=== PATIENT | female | born 1985 | race Caucasian/White ===

== ENCOUNTER 2017-05-28 18:25 | Emergency (ER) | payer MEDICAID ==
[~2017-05-28] VITALS: Ht 157.5 cm; Wt 74.7 kg
[~2017-05-28 18:25] MED LIST: CYCL-1 PO; DIPH25CA83 PO; IBUP-1574 PO; MECL-111 PO; METH500T PO; NO HOME MEDS
[2017-05-28] MEDS ORDERED: diphenhydrAMINE 25mg capsule PO ONE (19:55)
[2017-05-28 20:06] VITALS: BP 125/80
== END 2017-05-28 20:08 | disposition home or self-care (01) ==
LOC: ER 18:26
DX: L50.9 Urticaria, unspecified (principal); F12.10 Cannabis abuse, uncomplicated; Z79.899 Other long term (current) drug therapy
CPT/HCPCS: 99282; Q0163

== ENCOUNTER 2018-07-13 20:25 | Emergency (ER) | payer MEDICAID ==
[~2018-07-13] VITALS: Ht 157.5 cm; Wt 55.0 kg
[2018-07-13 21:20] LABS: BASOPHILS # (AUTO) 0.1 X10'3 (0-0.2); BASOPHILS % (AUTO) 0.8 % (0-1); EOSINOPHILS # (AUTO) 0.2 X10'3 (0-0.9); EOSINOPHILS % (AUTO) 2.8 % (0-6); HEMOGLOBIN 13.3 g/dl (12.0-16.0); LYMPHOCYTES # (AUTO) 2.5 X10'3 (1.1-4.8); LYMPHOCYTES % (AUTO) 35.7 % (21-51); MEAN CORPUSCULAR HGB CONC 33.2 g/dL (33.0-36.5); MEAN CORPUSCULAR VOLUME 84.4 FL (78-98); MONOCYTES # (AUTO) 0.5 X10'3 (0-0.9); MONOCYTES % (AUTO) 7.1 % (2-12); NEUTROPHILS # (AUTO) 3.8 X10'3 (1.8-7.7); NEUTROPHILS % (AUTO) 53.6 % (42-75); PLATELET COUNT 265 X10'3 (140-440); RED BLOOD COUNT 4.74 X10'6 (4.20-5.60); RED CELL DISTRIBUTION WIDTH 13.7 % (11.5-14.5); WHITE BLOOD COUNT 7.1 X10'3 (4.5-11.0)
[2018-07-13 21:28] LABS: CLARITY,URINE SLIGHTLY CLOUDY (Clear); COLOR,URINE YELLOW (Yellow); GLUCOSE, URINE NEGATIVE (Neg); KETONES,URINE NEGATIVE (Neg); LEUKOCYTE ESTERASE ,URINE NEGATIVE (Neg); NITRITES, URINE NEGATIVE (Neg); OCCULT BLOOD,URINE NEGATIVE (Neg); PH,URINE 5.5 (4.8-8.0); PROTEIN,URINE NEGATIVE (Neg); UROBILINOGEN,URINE 0.2 E.U/dL (0.2-1.0)
[2018-07-13 21:29] LABS: URINE HCG NEGATIVE (NEG)
[2018-07-13] MEDS ORDERED: dexamethasone sod phosphate 10mg/ml inj IV STA (21:42)
[2018-07-13] MEDS ORDERED: morphine 4 MG/ML inj SYRINge IV PRN (21:45)
[2018-07-13] MEDS ORDERED: ketorolac tromethamine 15mg/ml inj. IV ONE (21:45)
[2018-07-13] MEDS ORDERED: diphenhydrAMINE 50 mg/ml inj IV ONE (21:45)
[2018-07-13] MEDS ORDERED: SUMAtriptan succ. 6 MG/0.5ml vial SQ ONE (21:45)
[2018-07-13] MEDS ORDERED: normal saline 1000ML IV soln IVB ONE ×2 (21:45)
[2018-07-13] MEDS ORDERED: proCHLORperazine 10 MG/2 ml inj IV ONE (21:45)
[2018-07-13 21:46] LABS: UA COLLECTION TYPE CLN CATCH MIDSTREAM
[2018-07-13 21:47] LABS: BACTERIA,URINE FEW /HPF (Neg); RBC,URINE NONE SEEN /HPF (0-2); SQUAMOUS EPITHELIAL CELL,UR MODERATE /LPF (FEW); WBC,URINE 0-4 /HPF (0-4)
[2018-07-13 22:23] LABS: ALANINE AMINOTRANSFERASE 19 U/L (12-78); ALBUMIN/GLOBULIN RATIO 1.4 (1.1-1.5); ALKALINE PHOSPHATASE 90 IU/L (46-116); ANION GAP 8 (8-16); ASPARTATE AMINO TRANSFERASE 16 U/L (10-37); BILIRUBIN,TOTAL 0.2 MG/DL (0.1-1.0); BLOOD UREA NITROGEN 18 MG/DL (7-18); BUN/CREATININE RATIO 23.1 (6.6-38.0); CALCIUM 8.9 MG/DL (8.5-10.1); CHLORIDE 105 MMOL/L (99-107); CREATININE 0.78 MG/DL (0.40-0.90); GLUCOSE 99 MG/DL (70-104); LIPASE 83 U/L (73-393); POTASSIUM 3.7 MMOL/L (3.5-5.1); SODIUM 141 MMOL/L (135-145); TOTAL CARBON DIOXIDE 27.6 MMOL/L (24-32); TOTAL PROTEIN 6.9 G/DL (6.4-8.2); eGFR 85 ML/MIN
[2018-07-14] MEDS ORDERED: ONDA4TAB6 PO (00:41)
[2018-07-14 00:58] VITALS: BP 101/57
== END 2018-07-14 01:03 | disposition home or self-care (01) ==
LOC: ER 20:26
DX: R10.11 Right upper quadrant pain (principal); G43.909 Migraine, unspecified, not intractable, without status migrainosus; R19.7 Diarrhea, unspecified; F12.90 Cannabis use, unspecified, uncomplicated; Z98.890 Other specified postprocedural states; Z79.899 Other long term (current) drug therapy
CPT/HCPCS: 36415; 74176; 76700; 80053; 81001; 81025; 83690; 85025; 85610; 96361; 96372; 96374; 96375; 99284; J0780; J1100; J1200; J1885; J2270; J7030; J3030

== ENCOUNTER 2019-04-27 15:02 | Emergency (ER) | payer MEDICAID ==
[~2019-04-27] VITALS: Ht 157.5 cm; Wt 62.0 kg
[~2019-04-27 15:02] MED LIST changes: -MECL-111 PO; +MECL-159 PO; +ONDA4TAB6 PO
[2019-04-27 15:59] LABS: BASOPHILS # (AUTO) 0.1 X10'3 (0-0.2); BASOPHILS % (AUTO) 0.8 % (0-1); EOSINOPHILS # (AUTO) 0.3 X10'3 (0-0.9); EOSINOPHILS % (AUTO) 3.6 % (0-6); HEMATOCRIT 39.9 % (35.0-45.0); HEMOGLOBIN 13.5 g/dl (12.0-16.0); LYMPHOCYTES # (AUTO) 2.1 X10'3 (1.1-4.8); LYMPHOCYTES % (AUTO) 30.1 % (21-51); MEAN CORPUSCULAR HEMOGLOBIN 28.7 PG (27.0-31.0); MEAN CORPUSCULAR HGB CONC 33.8 g/dL (33.0-36.5); MEAN CORPUSCULAR VOLUME 84.9 FL (78-98); MEAN PLATELET VOLUME 8.2 FL (7.4-10.4); MONOCYTES # (AUTO) 0.5 X10'3 (0-0.9); MONOCYTES % (AUTO) 7.5 % (2-12); NEUTROPHILS # (AUTO) 4.1 X10'3 (1.8-7.7); PLATELET COUNT 273 X10'3 (140-440); WHITE BLOOD COUNT 7.1 X10'3 (4.5-11.0)
[2019-04-27 16:14] LABS: ALANINE AMINOTRANSFERASE 21 U/L (12-78); ALBUMIN/GLOBULIN RATIO 1.3 (1.1-1.5); ALKALINE PHOSPHATASE 98 IU/L (46-116); ANION GAP 8 (8-16); ASPARTATE AMINO TRANSFERASE 22 U/L (10-37); BILIRUBIN,TOTAL 0.4 MG/DL (0.1-1.0); BLOOD UREA NITROGEN 15 MG/DL (7-18); BUN/CREATININE RATIO 20.3 (6.6-38.0); CALCIUM 8.6 MG/DL (8.5-10.1); CHLORIDE 104 MMOL/L (99-107); CREATININE 0.74 MG/DL (0.40-0.90); GLUCOSE 89 MG/DL (70-104); LIPASE 94 U/L (73-393); POTASSIUM 3.6 MMOL/L (3.5-5.1); SODIUM 141 MMOL/L (135-145); TOTAL CARBON DIOXIDE 29.3 MMOL/L (24-32); eGFR 90 ML/MIN
[2019-04-27 18:53] VITALS: BP 126/89
[2019-04-27 18:57] LABS: CLARITY,URINE CLEAR (Clear); COLOR,URINE YELLOW (Yellow); GLUCOSE, URINE NEGATIVE (Neg); KETONES,URINE NEGATIVE (Neg); LEUKOCYTE ESTERASE ,URINE NEGATIVE (Neg); NITRITES, URINE NEGATIVE (Neg); OCCULT BLOOD,URINE NEGATIVE (Neg); PROTEIN,URINE NEGATIVE (Neg); UROBILINOGEN,URINE 0.2 E.U/dL (0.2-1.0)
[2019-04-27 18:58] LABS: UA COLLECTION TYPE CLN CATCH MIDSTREAM
[2019-04-27 19:19] LABS: URINE HCG NEGATIVE (NEG)
== END 2019-04-27 19:49 | disposition home or self-care (01) ==
LOC: ER 15:03
DX: R10.84 Generalized abdominal pain (principal); R10.33 Periumbilical pain; R10.32 Left lower quadrant pain; R05 Cough; R19.7 Diarrhea, unspecified; R11.0 Nausea; F41.9 Anxiety disorder, unspecified; F12.90 Cannabis use, unspecified, uncomplicated; Z98.890 Other specified postprocedural states; Z79.899 Other long term (current) drug therapy
CPT/HCPCS: 36415; 80053; 81003; 81025; 83690; 85025; 99283

== ENCOUNTER 2020-07-02 16:08 | Emergency (ER) | payer MEDICAID ==
[~2020-07-02] VITALS: Ht 157.5 cm; Wt 86.4 kg
[2020-07-02] MEDS ORDERED: ketorolac trometh. 30mg/ml inj. IM ONE (17:20)
[2020-07-02] MEDS ORDERED: ketorolac tromethamine 15mg/ml inj. IM ONE (17:25)
--- NOTE | 2020-07-02 17:55 | NUR ---
relieving RN for break, pt is back from [place], pt is resting quietly on gurney, ccollar in place, pt said pain med has helped relieved to 10/19 "my head still hurts"
[2020-07-02] MEDS ORDERED: CYCL-394 PO (18:14)
[2020-07-02] MEDS ORDERED: METH4TAB81 PO (18:14)
[2020-07-02 18:27] VITALS: BP 136/92
== END 2020-07-02 18:35 | disposition home or self-care (01) ==
LOC: ER 16:09
DX: S09.90XA Unspecified injury of head, initial encounter (principal); M54.2 Cervicalgia; R11.0 Nausea; R42 Dizziness and giddiness; M79.10 Myalgia, unspecified site; R05 Cough; R07.81 Pleurodynia; G43.909 Migraine, unspecified, not intractable, without status migrainosus; F41.9 Anxiety disorder, unspecified; F12.90 Cannabis use, unspecified, uncomplicated; Z98.890 Other specified postprocedural states; Z79.899 Other long term (current) drug therapy; W18.30XA Fall on same level, unspecified, initial encounter; Y93.89 Activity, other specified; Y92.89 Other specified places as the place of occurrence of the external cause; Y99.8 Other external cause status
CPT/HCPCS: 70450; 72125; 74176; 96372; 99285; J1885

== ENCOUNTER 2020-12-29 17:38 | Emergency (ER) | payer MEDICAID ==
[~2020-12-29] VITALS: Ht 157.5 cm; Wt 72.7 kg
[~2020-12-29 17:38] MED LIST changes: +METH4TAB81 PO
[2020-12-29 18:05] VITALS: BP 135/98
[2020-12-29] MEDS ORDERED: ondansetron/PF 4mg/2ml inj IM ONE (19:25)
[2020-12-29 20:22] LABS: BASOPHILS % (AUTO) 0.5 % (0-1); EOSINOPHILS # (AUTO) 0.1 X10'3 (0-0.9); EOSINOPHILS % (AUTO) 3.2 % (0-6); HEMATOCRIT 41.5 % (35.0-45.0); HEMOGLOBIN 13.5 g/dl (12.0-16.0); LYMPHOCYTES # (AUTO) 1.3 X10'3 (1.1-4.8); LYMPHOCYTES % (AUTO) 34.5 % (21-51); MEAN CORPUSCULAR HGB CONC 32.6 g/dL (33.0-36.5); MEAN CORPUSCULAR VOLUME 85.9 FL (78-98); MEAN PLATELET VOLUME 8.5 FL (7.4-10.4); MONOCYTES # (AUTO) 0.4 X10'3 (0-0.9); MONOCYTES % (AUTO) 9.6 % (2-12); NEUTROPHILS % (AUTO) 52.2 % (42-75); PLATELET COUNT 249 X10'3 (140-440); RED BLOOD COUNT 4.83 X10'6 (4.20-5.60); RED CELL DISTRIBUTION WIDTH 13.5 % (11.5-14.5); WHITE BLOOD COUNT 3.9 X10'3 (4.5-11.0)
[2020-12-29 20:32] LABS: ALANINE AMINOTRANSFERASE 41 U/L (12-78); ALBUMIN/GLOBULIN RATIO 1.2 (1.1-1.5); ALKALINE PHOSPHATASE 117 IU/L (46-116); ANION GAP 10 (8-16); ASPARTATE AMINO TRANSFERASE 39 U/L (10-37); BILIRUBIN,TOTAL 0.4 MG/DL (0.1-1.0); BLOOD UREA NITROGEN 20 MG/DL (7-18); BUN/CREATININE RATIO 21.3 (6.6-38.0); CALCIUM 8.4 MG/DL (8.5-10.1); CHLORIDE 107 MMOL/L (99-107); CREATININE 0.94 MG/DL (0.40-0.90); GLUCOSE 99 MG/DL (70-104); POTASSIUM 3.5 MMOL/L (3.5-5.1); SODIUM 147 MMOL/L (135-145); TOTAL CARBON DIOXIDE 29.6 MMOL/L (24-32); TOTAL PROTEIN 7.3 G/DL (6.4-8.2); eGFR 67 ML/MIN
[2020-12-29 20:43] LABS: CLARITY,URINE SLIGHTLY CLOUDY (Clear); COLOR,URINE YELLOW (Yellow); UA COLLECTION TYPE NON-SPECIFIED
[2020-12-29 20:44] LABS: GLUCOSE, URINE NEGATIVE (Neg); KETONES,URINE TRACE mg/dl (Neg); LEUKOCYTE ESTERASE ,URINE NEGATIVE (Neg); NITRITES, URINE NEGATIVE (Neg); OCCULT BLOOD,URINE NEGATIVE (Neg); PROTEIN,URINE NEGATIVE (Neg); UROBILINOGEN,URINE 0.2 E.U/dL (0.2-1.0)
[2020-12-29 20:46] LABS: BACTERIA,URINE FEW /HPF (Neg); CAL OXALATE CRYSTALS 2+ /HPF (NEGATIVE); MUCUS STRANDS FEW /LPF (Neg); RBC,URINE 0-2 /HPF (0-2); SQUAMOUS EPITHELIAL CELL,UR MODERATE /LPF (FEW); WBC,URINE 0-4 /HPF (0-4)
[2020-12-29 21:09] LABS: D-DIMER < 0.19 MG/L FEU (0-0.50)
== END 2020-12-29 21:30 | disposition home or self-care (01) ==
LOC: ER 17:39
DX: U07.1 COVID-19 (principal); R05.9 Cough, unspecified; R06.02 Shortness of breath; R11.0 Nausea; R19.7 Diarrhea, unspecified; R53.1 Weakness; R53.83 Other fatigue; F41.9 Anxiety disorder, unspecified; G43.909 Migraine, unspecified, not intractable, without status migrainosus; F12.90 Cannabis use, unspecified, uncomplicated; Z98.890 Other specified postprocedural states; Z79.899 Other long term (current) drug therapy
CPT/HCPCS: 36415; 71045; 80053; 81001; 85025; 85379; 87635; 96372; 99284; C9803; J2405

== ENCOUNTER 2021-07-11 09:36 | Emergency (ER) | payer MEDICAID ==
[~2021-07-11] VITALS: Ht 157.5 cm; Wt 72.7 kg
[2021-07-11 09:49] VITALS: BP 136/102
== END 2021-07-11 12:52 | disposition home or self-care (01) ==
LOC: ER 09:36
DX: S93.412A Sprain of calcaneofibular ligament of left ankle, initial encounter (principal); G43.909 Migraine, unspecified, not intractable, without status migrainosus; F41.9 Anxiety disorder, unspecified; F17.200 Nicotine dependence, unspecified, uncomplicated; F12.10 Cannabis abuse, uncomplicated; Z79.899 Other long term (current) drug therapy; X58.XXXA Exposure to other specified factors, initial encounter; Y93.89 Activity, other specified; Y92.89 Other specified places as the place of occurrence of the external cause; Y99.8 Other external cause status
CPT/HCPCS: 29540; 73610; 73630; 99284